=== PATIENT | male | born 1965 | race African-American/Black ===

== ENCOUNTER 2016-07-24 16:41 | Emergency (ER) | payer OTHER ==
[~2016-07-24] VITALS: Ht 190.5 cm; Wt 119.3 kg
[2016-07-24 19:59] VITALS: BP 152/93
== END 2016-07-24 19:59 | disposition home or self-care (01) ==
LOC: ED 16:41
DX: M54.40 Lumbago with sciatica, unspecified side (principal); I10 Essential (primary) hypertension; Z88.0 Allergy status to penicillin
CPT/HCPCS: J1170; J1885; Q0162